=== PATIENT | male | born 1960 ===

== ENCOUNTER 2024-04-02 06:31 | Day surgery (SDC) | payer MEDICARE ==
[2024-04-01 09:28] VITALS: BMI 27.3
[2024-04-02] MEDS ORDERED: Oxymetazoline HCl 0.05% (30 ML BOT) ONE (09:07)
[2024-04-02] MEDS ORDERED: PROPOFOL 20 ML ONE ×2 (09:42→09:43)
[2024-04-02] MEDS ORDERED: EPINEPHrine 1 MG/ML VIAL ONE (09:42)
[2024-04-02] MEDS ORDERED: Bacitracin Zinc Ointment 30 gm TUBE ONE (09:43)
[2024-04-02] MEDS ORDERED: Lidocaine 1% (PF) 30 ML VIAL ONE (09:43)
[2024-04-02] MEDS ORDERED: fentaNYL PF 100 MCG/2 ML SYRINGE ONE (09:43)
[2024-04-02 10:04] LABS: Hemoglobin 12.9 g/dL (14.0-18.0)
[2024-04-02] MEDS ORDERED: Dexamethasone 20 MG/5 ML VIAL ONE (10:07)
[2024-04-02] MEDS ORDERED: Ondansetron PF 4 MG/2 ML Vial ONE (10:07)
[2024-04-02] MEDS ORDERED: Rocuronium Bromide 10 MG/ML (10ML VIAL) ONE (10:08)
[2024-04-02] MEDS ORDERED: Lidocaine 1% PF 5 ML VIAL ONE (10:08)
[2024-04-02] MEDS ORDERED: Glycopyrrolate 0.2 MG/ML 5 ML SYRINGE ONE (10:08)
[2024-04-02] MEDS ORDERED: ePHEDrine Sulfate 50 MG/10 ML VIAL ONE (10:08)
[2024-04-02] MEDS ORDERED: SUGAMMADEX SODIUM 200 MG/2 ML VIAL ONE (10:17)
[2024-04-02 10:26] LABS: Anion Gap 15 mmol/L (10-20); BUN (Urea Nitrogen) 24 mg/dL (8.4-25.7); Calc. Creatinine Clearance 114 mL/min (70-130); Calcium 9.4 mg/dL (7.8-10.44); Carbon Dioxide 24 mmol/L (23-31); Chloride 106 mmol/L (98-107); Estimated GFR 92; Glucose 106 mg/dL (80-115); Potassium 4.2 mmol/L (3.5-5.1); Sodium 141 mmol/L (136-145)
[2024-04-02] MEDS ORDERED: fentaNYL 50 mcg/mL 1 mL Vial ONE (11:09)
== END 2024-04-02 12:37 | disposition home or self-care (01) ==
LOC: SDC 06:31
PROVIDERS: ATTEND Otolaryngology Plastic Surgery within the Head & Neck
PROC: 09BM0ZZ Excision of Nasal Septum, Open Approach (ICD-10-PCS; principal; 2024-04-02)
PROC: 09TL0ZZ Resection of Nasal Turbinate, Open Approach (ICD-10-PCS; 2024-04-02)
DX: J34.2 Deviated nasal septum (principal); J34.3 Hypertrophy of nasal turbinates; E78.00 Pure hypercholesterolemia, unspecified; I10 Essential (primary) hypertension; Z96.649 Presence of unspecified artificial hip joint; Z79.899 Other long term (current) drug therapy
CPT/HCPCS: 30140; 30520; 80048; 85014; 85018; 93005; J0171; J3010; 93010; J1100; J2001; J2405; J2704